=== PATIENT | female | born 1955 | race Caucasian/White ===

== ENCOUNTER 2018-09-17 14:09 | Emergency (ER) | payer OTHER ==
[~2018-09-17] VITALS: Ht 167.6 cm; Wt 86.2 kg
[2018-09-17 14:23] VITALS: BP 134/56
[2018-09-17] MEDS ORDERED: ACETAMINOPHEN 325 MG TAB PO ONE ×2 (16:12→16:15)
== END 2018-09-17 16:27 | disposition home or self-care (01) ==
LOC: ER 14:13
DX: S62.644A Nondisplaced fracture of proximal phalanx of right ring finger, initial encounter for closed fracture (principal); S62.646A Nondisplaced fracture of proximal phalanx of right little finger, initial encounter for closed fracture; N18.9 Chronic kidney disease, unspecified; Z88.6 Allergy status to analgesic agent; W19.XXXA Unspecified fall, initial encounter; Y93.89 Activity, other specified; Y99.8 Other external cause status; Y92.89 Other specified places as the place of occurrence of the external cause
CPT/HCPCS: 29125; 73130